=== PATIENT | male | born 1995 | race Caucasian/White ===

== ENCOUNTER → 2018-01-08 | Outpatient (CLI) | payer OTHER ==
[~2018-01-08] MED LIST: ACET-1256 PO; ASCO1CAP3 PO; FAT BURNER PO
--- NOTE | 2018-01-08 19:14 | DIAGNOSTIC IMAGING REPORT ---
L LOWER EXT JOINT WITHOUT CLINICAL HISTORY: 22 years-old Male presenting with L KNEE PAIN, R/O MCL TEAR, twisting injury while playing basketball, pain at the medial aspect, no prior surgery. TECHNIQUE: Multisequence, multiplanar MR imaging of the left knee was performed without the use of intravenous contrast. IV contrast: None. COMPARISON: Correlation made to plain radiographs from 12/30/2017. FINDINGS: Localizer images: Unremarkable. Bony edema extensively at the posterior lateral corner of the tibia and the anterolateral aspect of the lateral femoral condyle. More limited bony edema at the medial aspect of the medial femoral condyle. Articular cartilage intact. Increased signal intensity of the free edge of the posterior horn body junction of the medial meniscus without convincing evidence of a focal tear. This may represent degenerative change or diminutive tear. Similar increased signal intensity of the posterior horn body junction in the lateral meniscus may also represent degenerative change or a diminutive tear. Complete tear of the anterior cruciate ligament. Posterior cruciate ligament intact. Thickening and increased signal intensity of the proximal fibers of the medial collateral ligament with mild edema noted deep to the proximal fibers. This likely suggest grade 1 sprain. Lateral collateral ligament complex including the biceps femoris tendon, popliteus tendon, and iliotibial band intact. Anteriormost fibers of the proximal fibular collateral ligament are likely partially torn (series 9 image 11). Additionally, anterior fibers of the joint capsule immediately anterior to the fibular collateral ligament appear partially torn at the femoral origin (series 4 image 18). Extensive edema noted at the lateral patellar retinaculum, which may also be disrupted at the lateral fibers (series 9 image 15). Quadriceps and patellar tendons intact though increased signal intensity noted at the insertional fibers of the patellar tendon indicating tendinosis. Moderate knee joint effusion primarily in the suprapatellar recess. No popliteal cyst. Normal muscle bulk. Normal signal intensity of the musculature. Edema noted within the interfascial planes of the posterior lateral knee above the knee joint. IMPRESSION: 1. Posterior lateral corner injury pattern with partial tear of the anteriormost proximal fibers of the fibular collateral ligament. 2. Complete tear of the anterior cruciate ligament. 3. Partial disruption of the lateral joint capsule at the femoral origin and possible disruption of the lateral patellar retinaculum. 4. Grade 1 sprain of the medial collateral ligament. 5. No convincing evidence of a focal meniscal tear. 6. Moderate knee joint effusion. 7. Patellar tendinosis. Electronically signed by: Marquis Barroso M.D. 01/08/2018 7:13 PM Dictated Date/Time: 01/08/2018 7:00 PM
== END | disposition home or self-care (01) ==
LOC: C.MRI 17:31
PROVIDERS: ATTEND Orthopaedic Surgery Sports Medicine
DX: S83.421A Sprain of lateral collateral ligament of right knee, initial encounter (principal); S83.512A Sprain of anterior cruciate ligament of left knee, initial encounter; S83.412A Sprain of medial collateral ligament of left knee, initial encounter; X58.XXXA Exposure to other specified factors, initial encounter; M76.52 Patellar tendinitis, left knee